=== PATIENT | female | born 1985 | race Caucasian/White ===

== ENCOUNTER 2016-07-19 10:54 | Day surgery (SDC) | payer BC ==
[~2016-07-19] VITALS: Ht 162.6 cm; Wt 70.3 kg
[~2016-07-19 10:54] MED LIST: PRENATAL TABLE1 EACH PO
[2016-07-19 11:38] VITALS: BP 113/76
[2016-07-19 14:50] VITALS: BP 106/63
[2016-07-19 15:39] VITALS: BP 104/63
== END 2016-07-19 15:40 | disposition home or self-care (01) ==
LOC: SDC 10:54
PROC: 10D17ZZ Extraction of Products of Conception, Retained, Via Natural or Artificial Opening (ICD-10-PCS; principal; 2016-07-19)
DX: O02.1 Missed abortion (principal)
CPT/HCPCS: 88305; J0330; J0690; J1100; J1885; J2250; J2405; J3010